=== PATIENT | female | born 1945 | race Caucasian/White ===

== ENCOUNTER 2019-03-01 10:55 | Emergency (ER) | payer MEDICARE ==
[~2019-03-01] VITALS: Ht 160 cm; Wt 68.5 kg
[~2019-03-01 10:55] MED LIST: ASPIRIN81 MG PO; ATORVASTATIN CA40 MG PO; NASOCORT; SINGULAIR10 MG PO; SYMBICORT 16010.2 GM INH
--- OUTSIDE RECORDS SUMMARY | 2019-03-01 10:58 | XMS REPORT | Clinical Summary ---
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 Active cholecalciferol, vitamin Take by mouth 0 D3, 2,000 unit Cap 2 (two) times daily. Active clopidogrel (PLAVIX) 75 Take 75 mg by 0 mg tablet mouth daily. Active MULTIVITAMIN/IRON/FOLIC Take by mouth 0 ACID (CENTRUM COMPLETE daily. ORAL) Active CALCIUM/D3/MAG Take by mouth 0 OX/CRUSHER ASSEMBLER/PRITESH/ZN (CALTRATE daily. + D3 PLUS MINERALS ORAL) Active loratadine (CLARITIN) 10 Take 10 mg by 0 mg tablet mouth daily. Active ezetimibe (ZETIA) 10 mg Take 10 mg by 0 tablet mouth daily. Active montelukast (SINGULAIR) Take 10 mg by 0 10 mg tablet mouth nightly. Active fluticasone (FLOVENT Inhale 1 puff 0 DISKUS) 50 mcg/actuation by mouth via diskus inhaler inhaler 2 (two) times daily. Active Problems Problem Noted Date Carotid artery stenosis left ICA 70-99% by Doppler and 80% by CTA; Right 02/17/2018 ICA 16-49% by doppler, 40% by CTA 01/22/2018 Atherosclerosis of artery Pure hypercholesterolemia TIA (transient ischemic attack) Social History Date Tobacco Use Types Packs/Day Years Used Never Smoker Alcohol Use Drinks/Week oz/Week Comments No Sex Assigned at Date Recorded Not on file Industry Job Start Date Occupation Not on file Not on file Not on file Travel End Travel History Travel Start No recent travel history available. Last Filed Vital Signs Not on file Plan of Treatment Not on file Procedures Comments Procedure Name Priority Date/Time Associated Diagnosis VASCULAR DIAGRAM -SCAN 05/23/2018 10:51 AM CDT after 02/28/2018 Results * VASCULAR DIAGRAM -SCAN (05/23/2018 10:51 AM CDT) Narrative Performed At after 02/28/2018 Insurance Payer Benefit Subscriber ID Type Phone Address Plan / Group [facility] x[facility]xx MEDICARE ADV Advance Directives For more information, please contact: [facility] [address] [place] [address] Date Inactivated Comments Code Status Date Activated 02/17/2018 10:21 PM Full Code 02/17/2018 8:04 AM This code status was determined by: Patient
[2019-03-01] MEDS ORDERED: ACETAMINOPHEN/CODEINE 300MG - 30MG TAB PO ONE (11:15)
[2019-03-01] MEDS ORDERED: PREDNISONE 20 MG TAB PO ONE (11:15)
--- NOTE | 2019-03-01 11:31 | Diagnostic Imaging Report ---
EXAMINATION: PA and lateral views of the chest. COMPARISON: None CLINICAL HISTORY: Cough DISCUSSION: Lines/tubes: None. Lungs: The lungs are well inflated and clear. No pneumonia or pulmonary edema. Pleura: No pleural effusion or pneumothorax. Heart and mediastinum: The cardiomediastinal silhouette is normal. Bones and soft tissues: No acute bony abnormalities. IMPRESSION: No acute cardiopulmonary abnormalities. Signed by: Dr. Lang Puga M.D. on 03/01/2019 11:28 AM
[2019-03-01] MEDS ORDERED: PREDNISONE 20 MG TAB ONE (11:32)
[2019-03-01] MEDS ORDERED: ACETAMINOPHEN/CODEINE ELIX 120-12 MG/5 ML UDC ONE (11:44)
[2019-03-01] MEDS ORDERED: ACETAMINOPHEN INFANTS' 160 MG/5 ML BTL PO ONE (12:09)
[2019-03-01] MEDS ORDERED: ACETAMINOPHEN 325 MG/10 ML UDC PO PRN (12:15)
[2019-03-01] MEDS ORDERED: ALBUTEROL SULF 0.083% NEB SOLN 3 ML NEB ONE (12:15)
[2019-03-01] MEDS ORDERED: ALBUTEROL/IPRATROPIUM 3 ML NEB NEB ONE ×2 (12:15)
[2019-03-01] MEDS ORDERED: IPRATROPIUM BROMIDE 0.02% 2.5 ML NEB ONE (12:16)
[2019-03-01] MEDS ORDERED: ACETAMINOPHEN/CODEINE ELIX 120-12 MG/5 ML UDC PO ONE (12:30)
[2019-03-01 13:08] VITALS: BP 143/71
== END 2019-03-01 12:28 | disposition home or self-care (01) ==
LOC: FSED 10:55
DX: R05 Cough (principal); Z88.5 Allergy status to narcotic agent; Z88.8 Allergy status to other drugs, medicaments and biological substances
CPT/HCPCS: 71046; 99283; J7512

== ENCOUNTER 2021-11-18 15:59 | Emergency (ER) | payer MEDICARE, OTHER ==
[~2021-11-18] VITALS: Ht 160 cm; Wt 69.6 kg
[2021-11-18] MEDS ORDERED: ACETAMINOPHEN-1 EAC4 PO (18:14)
[2021-11-18] MEDS ORDERED: TRAMADOL HCL 50 MG TAB ONE (18:36)
[2021-11-18] MEDS ORDERED: TRAMADOL HCL 50 MG TAB PO STA (18:45)
[2021-11-18] MEDS ORDERED: HYDRALAZINE HCL25 MG PO (18:58)
[2021-11-18] MEDS ORDERED: SPIRONOLACTONE25 MG PO (18:58)
[2021-11-18] MEDS ORDERED: EZETIMIBE10 MG (18:58)
[2021-11-18] MEDS ORDERED: CARVEDILOL12.5 MG PO (18:58)
== END 2021-11-18 18:29 | disposition home or self-care (01) ==
LOC: FSED 16:01
DX: R07.89 Other chest pain (principal); W01.0XXA Fall on same level from slipping, tripping and stumbling without subsequent striking against object, initial encounter; Y93.01 Activity, walking, marching and hiking; Y92.89 Other specified places as the place of occurrence of the external cause; I10 Essential (primary) hypertension; E78.5 Hyperlipidemia, unspecified; I48.91 Unspecified atrial fibrillation; F41.9 Anxiety disorder, unspecified
CPT/HCPCS: 71250; 99283